=== PATIENT | male | born 1960 | race Caucasian/White ===

== ENCOUNTER 2024-02-19 09:39 | Outpatient (AMB) | payer OTHER, SELFPAY ==
--- NOTE | 2024-02-19 10:05 | MHC.PC.OV ---
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 Patient was seen at [facility] for an Aortic Valve replacement. Patient would like provider to know he was having [facility]NA services for his INR draws and their last appointment was last week. Patient reports he will go to [place] this week and call into coumadin clinic moving forward. Patient reports he is taking Aspirin 81mg and warfarin 1mg tablets sig: take 1-2 tablets by mouth daily as directed by the coumadin clinic. Patient reports he has no concerns at this time. 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 Accompanied by: Self / Same As Patient Allergies No Known Allergies Allergy (Verified 02/19/24 10:25) Medication List - Last Reconciled 02/19/24 by SWETHA Lopez- aspirin (Adult Low Dose Aspirin) 81 mg PO DAILY warfarin mg PO Tobacco use date assessed: 02/19/24 Dental Screening Dental Screen Date: 02/19/24 Did you have a dental visit in the last 12 months?: Yes Did you have a dental problem in the last 6 months where you did not have access to dental care?: No Was dental information given to patient?: Patient has dentist HPI HPI Comments History of Present Illness Details 63-year-old male current tobacco use, history of testicular cancer status post orchiectomy nonischemic cardiomyopathy systolic heart failure, status post aortic valve replacement with prosthetic valve warfarin anticoagulation, left ventricular mural thrombus without an CO Here today for hospital discharge follow up. He was admitted to [facility] 01/03/2024 for chest pain that occurred while taking out the trash. Cardiac cath and echo showed clean coronaries and critical aortic stenosis with newly reduced ejection fraction. He underwent an aortic valve replacement. INR goal 2-3 for 3 months then 1.5-2.0 warfarin managed by the [facility] Coumadin clinic discharged home with visiting nurse services 01/17/24. [facility] for cardiac rehab Echocardiogram 01/14/2024 EF 45-50% Discharge medications include Amiodarone 200 mg by mouth 2 times a day for 25 days Aspirin 81 mg p.o. daily Lasix 20 mg take half a tablet by mouth daily for 3 days Warfarin titrate to achieve goal INR Dental prophylactic AB required. - has meds on hand. Had Cardiac surg f/u 01/25/24 - note reviewed. Has not had regular Cards appt yet. States this is not scheduled. Will place Has Cardiac rehab scheduled to start 02/22/24 Completed VNA services Completed Amiodorone therapy. No longer taking lasix. Reports Wt is stable 130 lbs. Quit smoking. Cold turkey. Does have patches on hand PRN. Wearing TEDS. No edema. No chest pain. [facility] Medical History (Updated 02/19/24 @ 10:52 by Kavita Drew, [facility]) Testicular cancer Cardiomyopathy Surgical History (Updated 02/19/24 @ 07:53 by Lauren Bangura, [facility]) History of orchiectomy Social History Household Members: Spouse and Children Housing: Apartment Are you a primary animal care attendant to a significant other at home: No Do you presently have visiting nurse or other home services: No 75 years or older and lives alone: No Alcohol intake: former Comment: 6-7 weeks. None since surgery Patient Tobacco Use Status: Former Tobacco user Quit Date: 01/08/24 Tobacco use type: Cigarette Cigarettes Per Day: 9 Years Smoked: 45 e-Cigarette/Vaping Use: Never Used service: No Current occupational status: employed Current occupation: [employer] Cognitive needs: No Hearing needs: No Vision needs: No Questionnaire PHQ-9 Over the last 2 weeks, how often have you been bothered by any of the following problems? 1. Little interest or pleasure in doing things: not at all 2. Feeling down, depressed, or hopeless: not at all 3. Trouble falling or staying asleep, or sleeping too much: not at all 4. Feeling tired or having little energy: not at all 5. Poor appetite or overeating: not at all 6. Feeling bad about yourself - or that you are a failure or have let yourself or your family down: not at all 7. Trouble concentrating on things, such as reading the newspaper or watching television: not at all 8. Moving or speaking so slowly that other people could have noticed. Or the opposite - being so fidgety or restless that you have been moving around a lot more than usual: not at all 9. Thoughts that you would be better off or of hurting yourself in some way: not at all Total score: 0 Depression Screening Interpretation: Negative Depression Screening Done: Yes 30154 - PHQ-9 Billing: Yes Source: Developed by Drs. Jimmy Tinoco, Winnie Teixeira, Jorge Ramirez and colleagues, with an educational bidr from [employer]. Thrive Questionnaire Date Thrive assessed: 02/19/24 I am a: Patient What is your living situation today?: I have a steady place to live Within the past 12 months, did the food you bought not last and you didn't have the money to get more?: Never true Within the past 12 months, did you worry whether your food would run out before you got money to buy more?: Never true Do you have trouble paying for medicines?: No Do you have trouble getting transportation to medical appointments?: No Do you have trouble paying your heating and electricity bill?: No Do you have trouble taking care of your child, family member or friend?: No Do you have trouble with day-to-day activities such as bathing, preparing meals, shopping, managing finances, etc.?: No Are you currently unemployed and looking for a job?: No Are you interested in more education?: No Please select the resources that you would like help with: None Currently or been in a relationship where the following occur: no concerns reported THRIVE Score: 0 AUDIT C Alcohol Use Questionnaire (AUDIT-C) 1. How often do you have a drink containing alcohol?: 4 or more times a week 2. How many drinks containing alcohol do you have on a typical day when you are drinking?: 1 or 2 3. How often do you have six or more drinks on one occasion?: Never Total Score: 4 Score Reviewed/Action Taken: Yes DAVIS-7 AMB Questionnaire DAVIS-7 Date DAVIS - 7 assessed: 02/19/24 Feeling nervous, anxious, or on edge: 0 = Not at all Not being able to stop or control worryin = Not at all Worrying too much about different things: 0 = Not at all Trouble relaxin = Not at all Being so restless that it is hard to sit still: 0 = Not at all Becoming easily annoyed or irritable: 0 = Not at all Feeling afraid as if something awful might happen: 0 = Not at all Total DAVIS-7 score (0-4 normal; 5-9 mild; 10-14 moderate; 15-21 severe): 0 Source: Developed by Drs. Jimmy Tinoco, Winnie Teixeira, Jorge Ramirez and colleagues, with an educational bird from [employer]. DAVIS-7 Assessment Billing DAVIS-7 Assessment Tool: DAVIS-7 Assessment 38852 Review of Systems Const All systems reviewed & are unremarkable except as noted in HPI and below Physical exam (Primary Care) Vital Signs: Last Vital Signs Temp 98.4 F 02/19/24 10:14 Pulse 77 02/19/24 10:14 Resp 12 02/19/24 10:14 BP 135/63 02/19/24 10:14 Pulse Ox 97 02/19/24 10:14 Oxygen Delivery Method Room Air 02/19/24 10:14 BMI result Body Mass Index 19.2 Tobacco/Smoking Status: Tobacco use Status Tobacco use date assessed 02/19/24 02/19/24 10:26 Patient Tobacco Use Status Former Tobacco user 02/19/24 10:50 Tobacco use type Cigarette 02/19/24 10:50 e-Cigarette/Vaping Use Never Used 02/19/24 10:50 PHQ-9: PHQ-9 Score PHQ-9: Total score 0 02/19/24 10:51 Depression Screening Interpretation: Negative Thrive Assessment: Date of Thrive Assessment Date Thrive assessed 02/19/24 02/19/24 10:28 Currently or been in a relationship where the following occur: no concerns reported Advance Care Planning discussion: Exists, not on file Date of discussion: 02/19/24 Who was present: SELF Forms completed: Health Care Proxy and MOLST Time spent: 1-15 minutes, not on file Actual minutes spent: 5 Const Other: Awake alert sclera nonicteric RRR, 2/6 Murmur LS CTAB No edema BLE Mood and affect appropriate Assessment and Plan Assessment & Plan (1) Hospital discharge follow-up: Code(s): Z09 - Encounter for follow-up examination after completed treatment for conditions other than malignant neoplasm (2) Need for antibiotic prophylaxis for dental procedure: Comment: 12/2023 s/p AVR-M Code(s): Z79.2 - project estimator (current) use of antibiotics (3) Cardiomyopathy: Comment: nonischemic Managed by [facility] Cards Code(s): I42.9 - Cardiomyopathy, unspecified Qualifiers: Cardiomyopathy type: other Qualified Code(s): I42.8 - Other cardiomyopathies (4) Testicular cancer: Comment: s/p orchiectomy in his 20's reports no f/u needed. Code(s): C62.90 - Malignant neoplasm of unspecified testis, unspecified whether descended or undescended Qualifiers: Descendance of testis: unspecified Laterality: unspecified laterality Qualified Code(s): C62.90 - Malignant neoplasm of unspecified testis, unspecified whether descended or undescended (5) Anticoagulated on Coumadin: Comment: INR goal 1.5-2 Managed by [facility] CC Code(s): Z79.01 - project estimator (current) use of anticoagulants (6) Tobacco use: Comment: has quit smoking cold turkey applauded does have NRT at home PRN (patches) Will be candidate for Lung Ca screening in the future Code(s): Z72.0 - Tobacco use (7) CHF (congestive heart failure): Comment: 01/14/2024 EF 45-50% Not on BB, CCB or diuretic Managed by Cards Code(s): I50.9 - Heart failure, unspecified Qualifiers: Heart failure chronicity: chronic Heart failure type: systolic Qualified Code(s): I50.22 - Chronic systolic (congestive) heart failure (8) S/P AVR (aortic valve replacement): Comment: 01/11/2024 aortic valve replacement OnX INR goal 1.5-2 Code(s): Z95.2 - Presence of prosthetic heart valve Plan This note is constructed using voice recognition software. While every effort has been made to ensure accuracy in site reliability engineer, still errors may have been included Sometimes, these errors may affect the content or meaning of the given sentence . Total time spent caring for the patient today was 45 minutes. This includes time spent before the visit reviewing the chart, time spent during the visit, and time spent after the visit on documentation Orders: Referrals Cardiology Referral I42.9 - Cardiomyopathy, unspecified, I50.9 - Heart failure, unspecified, Z95.2 - Presence of prosthetic heart valve Patient Instructions: RTO in 4 months to f/u -- sooner PRN Will discuss colonoscopy, PSA, lung cancer screening at that time Coding Level of Care Code New Pt Level 4 (30794) Diagnoses Hospital discharge follow-up Z09 Need for antibiotic prophylaxis for dental procedure Z79.2 Other cardiomyopathy I42.8 Cardiomyopathy type: other Malignant neoplasm of testicle, unspecified laterality, unspecified whether descended or undescended C62.90 Descendance of testis: unspecified Laterality: unspecified laterality Anticoagulated on Coumadin Z79.01 Tobacco use Z72.0 Chronic systolic congestive heart failure I50.22 Heart failure chronicity: chronic Heart failure type: systolic S/P AVR (aortic valve replacement) Z95.2 Additional Codes DAVIS-7 Assessment Billing - DAVIS-7 Assessment Tool: DAVIS-7 Assessment 11242 ([id number]) Vital Signs *Quality* - Advance Care Planning discussion: Exists, not on file ([id number]) Vital Signs *Quality* - Time spent: 1-15 minutes, not on file ([id number])
[2024-02-19 10:14] VITALS: BP 135/63; PULSE 77; RESP 12; TEMP 36.9; O2SAT 97; BMI 19.2
== END 2024-02-19 10:53 | disposition home or self-care (01) ==
PROVIDERS: PCP Nurse Practitioner Family; Visit Provider Nurse Practitioner Family
DX: I42.8 Other cardiomyopathies (principal); C62.90 Malignant neoplasm of unspecified testis, unspecified whether descended or undescended; I50.22 Chronic systolic (congestive) heart failure; Z09 Encounter for follow-up examination after completed treatment for conditions other than malignant neoplasm; Z79.2 Long term (current) use of antibiotics; Z79.01 Long term (current) use of anticoagulants; Z72.0 Tobacco use; Z95.2 Presence of prosthetic heart valve; Z00.00 Encounter for general adult medical examination without abnormal findings
CPT/HCPCS: 1124F; 99204

== ENCOUNTER 2024-10-07 07:51 | Outpatient (AMB) | payer OTHER, SELFPAY ==
--- NOTE | 2024-10-07 07:55 | A.OFFPC_ITS ---
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: No Allergies No Known Allergies Allergy (Verified 10/07/24 08:13) Medication List - Last Reconciled 10/07/24 by SWETHA Lopez- aspirin (Adult Low Dose Aspirin) 81 mg PO DAILY warfarin mg PO Tobacco use date assessed: 10/07/24 Dental Screening Dental Screen Date: 10/07/24 Did you have a dental visit in the last 12 months?: No Did you have a dental problem in the last 6 months where you did not have access to dental care?: No Was dental information given to patient?: Patient has dentist HPI HPI Comments History of Present Illness Details 64-year-old male current tobacco use, hi story of testicular cancer status post orchiectomy nonischemic cardiomyopathy systolic heart failure, status post aortic valve replacement with prosthetic valve warfarin anticoagulation, left ventricular mural thrombus without an [place] Social: works @ [employer]; , Expecting first granddtr Nov 2024 Family hx: Mother [place] , Dad unknown, 2 sons alive and well, 1 dtr alive and well Specialists Cards Health Maintenance Lung Ca screening declined Colon declined, ok with cologaurd PSA ordered today Tdap today Flu declined INR goal 2-3 for 3 months then 1.5-2.0 warfarin managed by the [facility] Coumadin clinic Echocardiogram 01/14/2024 EF 45-50% Dental prophylactic AB required. - has meds on hand. Here today for CPE: c/o insomnia which began after discharge from the hospital, and he reports difficulties with both initiating and maintaining sleep. He has not been taking any sleep aids, expressing concern about interactions with his prescribed anticoagulant medication, warfarin. He noted that since quitting smoking and alcohol, his body might be undergoing readjustment. The patient experiences polyuria, waking every two hours at night, a change from previous patterns. He has not had recent lab work since his last hospitalization. He reports some situational anxiety, attributing it to his lifestyle change of remaining at home more often after quitting smoking. Additionally, the patient reports gaining weight, noticing a change in clothing fit since he stopped smoking and drinking. He has a medical history significant for testicular cancer treated successfully in his 30s, hyperlipidemia, cardiovascular disease, and a major heart surgery? chronic disease management primarily involves his heart condition and cardiovascular health. The patient has never had any complications related to his chronic issues since the last follow-up cardio. Health Maintenance - Smoking cessation achieved recently - Accepted tetanus vaccination (Tdap) bu t declined flu vaccination - Discussed lung cancer screening; decli angella after cessation of smoking - Colonoscopy screening declined; agreed to complete home-based non-invasive test for colon cancer - Discussion encouraged regarding eye he alth; probable cataracts observed, ophthalmology referral recommended - Notified about the importance of Tdap vaccination in the context of impending grandchild arrival - Discussed weight gain post-cessation o f smoking and alcohol - Juvenile Probation Officer follow-up potentially kevin und September or October Social History - Works third shift with reduced hours; reports manageable financial situation - Lives with supportive - Nutritional intake includes regular co nsumption of high-protein foods, such as [place] cakes and sausages - Alcohol and smoking cessation since ho spitalization - Minimal outdoor activity since quittin g smoking Review of Systems - General: Denies fever, chills, night s weats - Eyes: Denies recent change in vision, reports blurriness bilat eyes worse on R - Ears: Denies hearing loss, pending hea ring test this month - Cardiovascular: Denies new chest pain or palpitations - Respiratory: Denies dyspnea, improved since smoking cessation - Gastrointestinal: Reports regular miles l movements - Genitourinary: Reports increased frequ ency of urination - Neurological: Denies headache, dizzine ss Exam: General: Well developed, well nourished, in no acute distress. Appears stated age. Head: Normocephalic, atraumatic. Eyes: Pupils are equal, round and reactive to light and accommodation. Conjunctivae are clear. Clouding around Iris bilat, R>L Ears: TMs clear AU, EACS + cerumen nonobstructive Nose: Patent, without discharge. Mouth: R posterior faucial pillar is a growth, it is about the size of a grape flesh/rosas colored Neck: Fixed hard tonsillar lymphnode on the R Lungs: Clear to auscultation bilaterally. No rales, rhonchi or wheeze noted. Good air flow in all martínez. Heart: RRR, 2/6 Murmur. Abdomen: Bowel sounds present in all quadrants. The abdomen is soft, nontender, with no masses or organomegaly noted. No hernias are noted. Musculoskeletal: Joints are nontender, without swelling, redness, or effusions. Range of motion is observed to be normal. Pulses: Peripheral pulses are equal and palpable bilaterally. Extremities: No clubbing, cyanosis nor edema is noted. Neurologic: Gait and station normal. Cranial Nerves 2-12 intact. Motor strength grossly symmetrical and intact. No sensory loss. Balance normal. Skin: No rashes, ulcers, or lesions noted. Turgor is good. Skin color is good. Hair and nails are without abnormalities. Psych: Normal eye contact, affect and mood appropriate, and normal interactions. Patient is alert and appropriate to context. Plan - Insomnia: Conduct laboratory tests to check for any contributory factors; assess interactions between warfarin and potential sleep medication; consider safe pharmacologic options if lab results are unremarkable. - Anxiety: Discuss lifestyle adjustments ; recommend continued abstinence from smoking and alcohol as beneficial strategies. - Polyuria: Evaluate urinary symptoms wi th a prostate-specific antigen PSA) test to rule out prostate issues. - Cardiovascular Disease: Follow-up with electrician manager; ensure laboratory monitoring of INR for warfarin management. - Throat Mass: Immediate imaging and ref erral to a head and neck surgical instrument repair specialist for evaluation. - Possible Cataracts: Referral to ophtha lmology for further evaluation. States he can self refer to Dr Kat. Patient was informed and verbally consented to the use of an ambient scribe for clinic note documentation during this visit. Patient Instructions - Tdap today; flu shot declined - Get lab tests done today as advised - Follow-up with apartment maintenance technician for pot ential cataracts - Complete home colon cancer screening t est when received - Await communication for safe sleep med ication following lab results to help insomnia - Book appointment with head and neck blanca rgeon as soon as possible - Monitor general health; maintain cessa tion of smoking and alcohol - Report any new or worsening symptoms p romptly - Follow-up call in three weeks for imag ing review and further recommendations This note is constructed using voice recognition software. While every effort has been made to ensure accuracy in presser first, still errors may have been included Sometimes, these errors may affect the content or meaning of the given sentence . An additional 30 minutes was spent addressing the problem(s) noted at todays visit. This includes time spent before the visit reviewing the chart, time spent during the visit, and time spent after the visit on documentation [facility] Medical History (Updated 10/07/24 @ 12:40 by SWETHA Lopez-) Testicular cancer Cardiomyopathy Surgical History (Updated 02/19/24 @ 07:53 by SWETHA Lopez-TOMAS) History of orchiectomy Social History (Updated 02/19/24 @ 10:53 by Kavita Drew [facility]) Household Members: Spouse and Children Housing: Apartment Are you a primary care team assistant to a significant other at home: No Do you presently have visiting nurse or other home services: No 75 years or older and lives alone: No Alcohol intake: former Comment: 6-7 weeks. None since surgery Patient Tobacco Use Status: Former Tobacco user Tobacco use type: Cigarette Cigarettes Per Day: 9 Years Smoked: 45 e-Cigarette/Vaping Use: Never Used service: No Current occupational status: employed Current occupation: [employer] Cognitive needs: No Hearing needs: No Vision needs: No Questionnaire PHQ-9 Over the last 2 weeks, how often have you been bothered by any of the following problems? 1. Little interest or pleasure in doing things: not at all 2. Feeling down, depressed, or hopeless: not at all 3. Trouble falling or staying asleep, or sleeping too much: several days 4. Feeling tired or having little energy: more than half the days 5. Poor appetite or overeating: not at all 6. Feeling bad about yourself - or that you are a failure or have let yourself or your family down: not at all 7. Trouble concentrating on things, such as reading the newspaper or watching television: several days 8. Moving or speaking so slowly that other people could have noticed. Or the opposite - being so fidgety or restless that you have been moving around a lot more than usual: not at all 9. Thoughts that you would be better off or of hurting yourself in some way: not at all Total score: 4 Depression Screening Interpretation: Negative Depression Screening Done: Yes 90454 - PHQ-9 Billing: Yes Source: Developed by Drs. Jimmy Tinoco, Winnie Teixeira, Jorge Ramirez and colleagues, with an educational bird from [employer] Reviewed. Thrive Questionnaire Date Thrive assessed: 10/07/24 I am a: Patient What is your living situation today?: I have a steady place to live Within the past 12 months, did the food you bought not last and you didn't have the money to get more?: Never true Within the past 12 months, did you worry whether your food would run out before you got money to buy more?: Never true Do you have trouble paying for medicines?: No Do you have trouble getting transportation to medical appointments?: No Do you have trouble paying your heating and electricity bill?: No Do you have trouble taking care of your child, family member or friend?: No Do you have trouble with day-to-day activities such as bathing, preparing meals, shopping, managing finances, etc.?: No Are you currently unemployed and looking for a job?: No Are you interested in more education?: No Please select the resources that you would like help with: None Currently or been in a relationship where the following occur: No concerns reported THRIVE Score: 0 AUDIT C Alcohol Use Questionnaire (AUDIT-C) 1. How often do you have a drink containing alcohol?: Never 2. How many drinks containing alcohol do you have on a typical day when you are drinking?: 1 or 2 3. How often do you have six or more drinks on one occasion?: Never Total Score: 0 Score Reviewed/Action Taken: Yes DAVIS-7 AMB Questionnaire DAVIS-7 Date DAVIS - 7 assessed: 10/07/24 Feeling nervous, anxious, or on edge: 0 = Not at all Not being able to stop or control worryin = Not at all Worrying too much about different things: 2 = More than half the days Trouble relaxin = Not at all Being so restless that it is hard to sit still: 0 = Not at all Becoming easily annoyed or irritable: 0 = Not at all Feeling afraid as if something awful might happen: 0 = Not at all Total DAVIS-7 score (0-4 normal; 5-9 mild; 10-14 moderate; 15-21 severe): 2 Source: Developed by Drs. Jimmy Tinoco, Winnie Teixeira, Jorge Ramirez and colleagues, with an educational bird from [employer] Reviewed. DAVIS-7 Assessment Billing DAVIS-7 Assessment Tool: DAVIS-7 Assessment 73217 Physical exam (Primary Care) Vital Signs: Last Vital Signs Temp 98.1 F 10/07/24 08:00 Pulse 88 10/07/24 08:00 Resp 16 10/07/24 08:00 BP 137/68 10/07/24 08:00 Pulse Ox 99 10/07/24 08:00 Oxygen Delivery Method Room Air 10/07/24 08:00 BMI result Body Mass Index 19.7 Tobacco/Smoking Status: Tobacco use Status Tobacco use date assessed 10/07/24 10/07/24 08:00 Patient Tobacco Use Status Former Tobacco user 10/07/24 07:58 Tobacco use type Cigarette 10/07/24 07:58 e-Cigarette/Vaping Use Never Used 10/07/24 07:58 PHQ-9: PHQ-9 Score PHQ-9: Total score 4 10/07/24 11:12 Depression Screening Interpretation: Negative Thrive Assessment: Date of Thrive Assessment Date Thrive assessed 10/07/24 10/07/24 07:58 Currently or been in a relationship where the following occur: No concerns reported Immunizations Boostrix Tdap 2.5 Lf unit-8 mcg-5 Lf/0.5 mL intramuscular syringe Performing Provider: ELIZABETH Lopez [place] [facility] Administered by: Terrie Calderón RN on 10/07/24 08:40 Dose Route Admin Location Dispensed Lot Number Expiration Date [facility] [place] 0.5 mL IM Left Deltoid 0.5 mL [id number] 11/20/26 [id number] [employer] VIS Given Date VIS Provided VIS Publication Date 10/07/24 Single Vaccine 21 Eligibility Eligibility Date Funding Source Not [facility] Eligible 10/07/24 Private Coding Level of Care Code Est Pt Level 4 (01588) Est Pt Prev Care 40-64y(69376) Diagnoses Adjustment insomnia F51.02 Insomnia type: adjustment DAVIS (generalized anxiety disorder) F41.1 Lung cancer screening declined by patient Z53.20 Influenza vaccination declined Z28.21 Need for Tdap vaccination Z23 Tobacco use Z72.0 Cervical adenopathy R59.0 Mass of pharynx J39.2 Additional Codes DAVIS-7 Assessment Billing - DAVIS-7 Assessment Tool: DAVIS-7 Assessment 82652 ([id number]) PHQ-9 - 06205 - PHQ-9 Billing: Yes ([id number]) Assessment & Plan Assessment & Plan (1) Insomnia: Code(s): G47.00 - Insomnia, unspecified Category: Medical Qualifiers: Insomnia type: adjustment Qualified Code(s): F51.02 - Adjustment insomnia (2) DAVIS (generalized anxiety disorder): Code(s): F41.1 - Generalized anxiety disorder Category: Medical (3) Lung cancer screening declined by patient: Code(s): Z53.20 - Procedure and treatment not carried out because of patient's decision for unspecified reasons Category: Medical (4) Influenza vaccination declined: Code(s): Z28.21 - Immunization not carried out because of patient refusal Category: Medical (5) Need for Tdap vaccination: Code(s): Z23 - Encounter for immunization Category: Medical (6) Tobacco use: Comment: has quit smoking cold turkey 07/2024 applauded does have NRT at home PRN (patches) Will be candidate for Lung Ca screening in the future - declined Code(s): Z72.0 - Tobacco use Category: Social Hx (7) Cervical adenopathy: Comment: right tonsillar, hard fixed Code(s): R59.0 - Localized enlarged lymph nodes Category: Medical (8) Mass of pharynx: Comment: right posterior faucial pillar Code(s): J39.2 - Other diseases of pharynx Category: Medical Plan . Orders: Orders Complete Blood Count no Diff Today Z00.00 - Encounter for general adult medical examination without abnormal findings Comprehensive Met. Panel Today Z00.00 - Encounter for general adult medical examination without abnormal findings Hemoglobin A1c Today Z00.00 - Encounter for general adult medical examination without abnormal findings IRON PROFILE Today Z00.00 - Encounter for general adult medical examination without abnormal findings Lipid Panel Today Z00.00 - Encounter for general adult medical examination without abnormal findings Microalbumin, Random (w Creat) Today Z00.00 - Encounter for general adult medical examination without abnormal findings PSA, Ultra Sensitive Today Z00.00 - Encounter for general adult medical examination without abnormal findings CT soft tissue neck w IV con Today J39.2 - Other diseases of pharynx, R59.0 - Localized enlarged lymph nodes, Z72.0 - Tobacco use TSH reflex Free T4 Today Z00.00 - Encounter for general adult medical examination without abnormal findings Vitamin B12 and Folate Today Z00.00 - Encounter for general adult medical examination without abnormal findings Vitamin D 25-OH Total Today Z00.00 - Encounter for general adult medical examination without abnormal findings TDaP Immunization Today Z23 - Encounter for immunization Referrals General Surgery Referral J39.2 - Other diseases of pharynx, R59.0 - Localized enlarged lymph nodes Cologuard Test Z12.11 - Encounter for screening for malignant neoplasm of colon, Z12.12 - Encounter for screening for malignant neoplasm of rectum Patient Instructions: Health screenings for men ages 40 to 64 You should visit your health care provider regularly, even if you feel healthy. The purpose of these visits is to: Screen for medical issues Assess your risk for future medical problems Encourage a healthy lifestyle Update vaccinations and other preventive care services Help you get to know your provider in case of an illness Information Even if you feel fine, you should still see your provider for regular checkups. These visits can help you avoid problems in the future. For example, the only way to find out if you have high blood pressure is to have it checked regularly. High blood sugar and high cholesterol level also may not have any symptoms in the early stages. Simple blood tests can check for these conditions. There are specific times when you should see your provider or receive specific health screenings. The [place] Preventive Services Task Force publishes a list of recommended screenings. Below are screening guidelines for men ages 40 to 64. BLOOD PRESSURE SCREENING Have your blood pressure checked at least once every year. Watch for blood pressure screenings in your area. Ask your provider if you can stop in to have your blood pressure checked. Ask your provider if you need your blood pressure checked more often if: You have diabetes, heart disease, kidney problems, or are overweight or have certain other health conditions You have a first-degree relative with high blood pressure You are Black Your blood pressure top number is from 120 to 129 mm Hg, or the bottom number is from 70 to 79 mm Hg If the top number is 130 mm Hg or greater or the bottom number is 80 mm Hg or greater, this is considered stage 1 hypertension. Schedule an appointment with your provider to learn how you can lower your blood pressure. Effects of age on blood pressure CHOLESTEROL SCREENING Cholesterol screening should begin at age 35 for men with no known risk factors for coronary heart disease. Repeat cholesterol screening should take place: Every 5 years for men with normal cholesterol levels More often if changes occur in lifestyle (including weight gain and diet) More often if you have diabetes, heart disease, kidney problems, or certain other conditions COLORECTAL CANCER SCREENING If you are under age 45, talk to your provider about getting screened. You may need to be screened if you have a strong family history of colon cancer or polyps. Screening may also be considered if you have risk factors such as a history of inflammatory bowel disease or polyps. If you are age 45 to 75, you should be screened for colorectal cancer. There are several screening tests available: A stool-based fecal occult blood (gFOBT) or fecal immunochemical test (FIT) every year A stool sDNA test every 1 to 3 years Flexible sigmoidoscopy every 5 years or every 10 years with stool testing FIT done every year CT colonography (virtual colonoscopy) every 5 years Colonoscopy every 10 years You may need a colonoscopy more often if you have risk factors for colorectal cancer, such as: Ulcerative colitis A personal or family history of colorectal cancer A history of growths in your colon called adenomatous polyps DENTAL EXAM Go to the dentist once or twice every year for an exam and cleaning. Your dentist will evaluate if you have a need for more frequent visits. DIABETES SCREENING All adults who do not have risk factors for diabetes should be screened starting at age 35 and repeated every 3 years. If you have other risk factors for diabetes, such as a first degree relative with diabetes, overweight or obesity, high blood pressure, prediabetes, or a history of heart disease, you may be tested more often. If you are overweight and have other risk factors, such as high blood pressure and are planning to become , screening is recommended. EYE EXAM Have an eye exam every 2 to 4 years ages 40 to 54 and every 1 to 3 years ages 55 to 64. Your provider may recommend more frequent eye exams if you have vision problems or glaucoma risk. Have an eye exam that includes an examination of your retina (back of your eye) at least every year if you have diabetes. IMMUNIZATIONS Commonly needed vaccines include: Flu shot: get one every year COVID-19 vaccine: ask your provider what is best for you Tetanus-diphtheria and acellular pertussis (Tdap) vaccine: have as one of your tetanus-diphtheria vaccines if you did not receive it as an adolescent Tetanus-diphtheria: have a booster (or Tdap) every 10 years Varicella vaccine: receive 2 doses if you never had chickenpox or the varicella vaccine and were born in 1980 or after Hepatitis B vaccine: receive 2, 3, or 4 doses, depending on your exact circumstances, if you did not receive these as a child or adolescent, until age 59 Shingles (herpes zoster) vaccine: at or after age 50 Ask your provider if you should receive other immunizations, especially if you have certain medical conditions, such as diabetes or are at increased risk for some diseases such as pneumonia. INFECTIOUS DISEASE SCREENING Screening for hepatitis C: all adults ages 18 to 79 should get a one-time test for hepatitis C. Screening for human immunodeficiency virus (HIV): all people ages 15 to 65 should get a one-time test for HIV. Depending on your lifestyle and medical history, you may need to be screened for infections such as syphilis, chlamydia, and other infections. LUNG CANCER SCREENING You should have an annual screening for lung cancer with low-dose computed tomography (LDCT) if: You are age 50 to 80 years AND You have a 20 pack-year smoking history AND You currently smoke or have quit within the past 15 years OSTEOPOROSIS SCREENING If you are age 50 to 64 and have risk factors for osteoporosis, you should discuss screening with your provider. Risk factors can include long-term steroid use, low body weight, smoking, heavy alcohol use, having a fracture after age 50, or a family history of hip fracture or osteoporosis. Osteoporosis PHYSICAL EXAM All adults should visit their provider from time to time, even if they are healthy. The purpose of these visits is to: Screen for diseases Assess risk of future medical problems Encourage a healthy lifestyle Update vaccinations and other preventive care services Maintain a relationship with a provider in case of an illness Your height, weight, and body mass index (BMI) should be checked at every exam. During your exam, your provider may ask you about: Depression and anxiety Diet and exercise Alcohol and tobacco use Safety, such as use of seat belts and smoke detectors Your medicines and risk for interactions PROSTATE CANCER SCREENING If you're 55 through 69 years old, before having the test, talk to your provider about the pros and cons of having a PSA test. Ask about: Whether screening decreases your chance of dying from prostate cancer. Whether there is any harm from prostate cancer screening, such as side effects from testing or overtreatment of cancer when discovered. Whether you have a higher risk of prostate cancer than others. If you are age 55 or younger, screening is not generally recommended. You should talk with your provider about if you have a higher risk for prostate cancer. Risk factors include: Having a family history of prostate cancer (especially a brother or father) Being If you choose to be tested, the PSA blood test is repeated over time (yearly or less often), though the best frequency is not known. Prostate examinations are no longer routinely done on men with no symptoms. Prostate cancer SKIN EXAM Your provider may check your skin for signs of skin cancer, especially if you're at high risk. People at high risk include those who have had skin cancer before, have close relatives with skin cancer, or have a weakened immune system. TESTICULAR EXAM The [place] Preventive Services Task Force (USPSTF) now recommends against performing testicular self-exams. Doing testicular self-exams has been shown to have little to no benefit.
[2024-10-07 08:00] VITALS: BP 137/68; PULSE 88; RESP 16; TEMP 36.7; O2SAT 99; BMI 19.7
== END 2024-10-07 08:39 | disposition home or self-care (01) ==
PROVIDERS: PCP Nurse Practitioner Family; Visit Provider Nurse Practitioner Family
DX: Z00.00 Encounter for general adult medical examination without abnormal findings (principal); F51.02 Adjustment insomnia; F41.1 Generalized anxiety disorder; Z53.20 Procedure and treatment not carried out because of patient's decision for unspecified reasons; Z28.21 Immunization not carried out because of patient refusal; Z23 Encounter for immunization; Z72.0 Tobacco use; R59.0 Localized enlarged lymph nodes; J39.2 Other diseases of pharynx

== ENCOUNTER → 2024-10-07 07:51 | Outpatient (BNVA) | payer OTHER, SELFPAY | PROVIDERS: PCP Nurse Practitioner Family; Visit Provider Nurse Practitioner Family | DX: Z00.00 Encounter for general adult medical examination without abnormal findings (principal); Z23 Encounter for immunization; F51.02 Adjustment insomnia; F41.1 Generalized anxiety disorder; R59.0 Localized enlarged lymph nodes; J39.2 Other diseases of pharynx; R35.89 Other polyuria; Z72.0 Tobacco use; Z28.21 Immunization not carried out because of patient refusal | CPT/HCPCS: 90471; 90715; 96127 ==

== ENCOUNTER 2024-10-08 13:23 | Outpatient (REF) | payer OTHER, SELFPAY ==
--- NOTE | ~2024-10-08 | CT_ITS ---
EXAMINATION: CT SOFT TISSUE NECK WITH CONTRAST CLINICAL INFORMATION: Former smoker, now presents with right faucial pillar hard fixed tonsillar lymph node. COMPARISON: None available. TECHNIQUE: Following the intravenous administration of 60 mL of Omnipaque 350 intravenous contrast, helical imaging was performed in the axial plane with generation of coronal and sagittal reformatted images. This CT examination was performed using dose optimization techniques as appropriate, variously including the following: *Automated exposure control *Adjustment of mA and/or kV according to patient size (this includes techniques or standardized protocols for targeted exams where dose is matched to indication/reason for exam; i.e. extremities or head) *Use of iterative reconstruction technique DLP: 488 mGy-cm FINDINGS: PHARYNX: The visualized nasopharynx, hypopharynx are normal with no focal mass lesion. There is mild asymmetric soft tissue swelling in the right palatine tonsil, partially effacing the right oropharyngeal cavity. However, no discrete focal mass lesion or well demarcated rim enhancing abscess cavity could be identified. PHARYNGEAL STRUCTURES: Bilateral valleculae, epiglottis, piriform sinuses, vocal cords and arytenoids are normal. SALIVARY GLANDS: Bilateral parotid and submandibular salivary glands are symmetrical without focal lesion. LYMPH NODES: No abnormally enlarged cervical or superior mediastinal lymph nodes are seen. THYROID: No focal thyroid mass lesion is found. BONES: No fracture or dislocation. No focal bone lesion diagnostic of metastatic disease could be seen in the visualized skull base, cervical and upper thoracic spine. Median sternotomy wire loops are present. LUNG APICES: Extensive fibrosis is seen in bilateral lung apices. Ascending thoracic aortic fusiform aneurysm measuring 4.2 cm in AP diameter, 4.1 cm in width is partially visualized. CT/CT soft tissue neck w IV con IMPRESSION: 1. Mild asymmetric soft tissue swelling in the right palatine tonsil, partially effacing the right oropharyngeal cavity. However, no discrete focal mass lesion or well demarcated rim enhancing abscess cavity could be identified. 2. No abnormally enlarged cervical or superior mediastinal lymph nodes are seen. 3. Extensive fibrosis in bilateral lung apices. 4. Partially visualized Ascending thoracic aortic fusiform aneurysm measuring 4.2 cm in AP diameter, 4.1 cm in width. Electronically signed by: Melanie Fernandez MD 10/09/2024 01:05 PM [facility] [place], [place]
[2024-10-08] MEDS: iohexoL 350 MG/ML 100 ML INFUS..BTL 60 ML IV (14:14)
[2024-10-10 06:42] LABS: Creatinine POC 0.7 mg/dL (0.5-1.4); GFR POC > 60
== END 2024-10-08 13:24 | disposition home or self-care (01) ==
LOC: HO.CT 13:23
PROVIDERS: PCP Nurse Practitioner Family; Visit Provider Nurse Practitioner Family
DX: R59.0 Localized enlarged lymph nodes (principal); J39.2 Other diseases of pharynx; Z72.0 Tobacco use
CPT/HCPCS: 70491; 82565; Q9967